=== PATIENT | male | born 1940 | race African-American/Black ===

== ENCOUNTER → 2017-08-28 | Outpatient (CLI) | payer OTHER ==
[~2017-08-28] MED LIST: ACET500T68 PO; ALPR0.5T PO; ASPI325T8 PO; CRESTOR10 MG PO; LORA10TA68 PO; METO50TA2 PO; MULT1TAB52 PO; OMEP20CA9 PO; POLY17PO29 PO; UBID100C26 PO
--- NOTE | 2017-08-28 19:32 | PAIN ---
DATE OF SERVICE: 08/28/2017 CHIEF COMPLAINT: Low back and bilateral lower extremity pain, right greater than left. HISTORY OF PRESENT ILLNESS: This is a 77-year-old male who presents with history of pain for about 12-15 years, worse over the past 1 year, increasing pain in low back into the lower extremities, mostly in the right side with radiation to posterior gluteus, posterior thigh, posterior calf, ankle and foot on the right side and some anterior thigh on the left side, as well as across the low back bilaterally. The patient reports it is worse with standing, walking, changing positions, better with lying down or sitting. The patient reports it is a sharp, stabbing, shooting, throbbing pain with numbness, radiation, tingling, changed during the day, intermittent in intensity, burning, cramping and aching sensation, mostly in the back and legs and mostly on the right side with radiation in the posterior gluteus, thigh and calf in an L5-S1 distribution. The patient reports it does not generally wake him up from sleep at night, does not affect his bowel or bladder control, but does affect his ability to walk significantly. He has a cane which he is walking with and holding in his right hand with him today. The patient has had epidural injections in the past about 10 years ago, trigger point injections, physical therapy, counseling, chiropractic treatment, exercise which he is doing constantly and to this day. The patient also had some acupuncture treatment in the past. He tried Tylenol, aspirin, Aleve and other NSAIDs only with minor decrease in pain. The patient reports no complete resolution of pain, no complete loss of motor function, but significant fatigability in the right lower extremity with walking, standing, changing positions where his right leg wears out much more quicker than the left with activity. PAST MEDICAL HISTORY: Significant for arthritis, irregular heartbeat, hypertension, hearing loss with bilateral hearing aids. PREVIOUS SURGERY: Include inguinal hernia repair x 2 in 1965, lumbar laminectomy in 2004 with interbody fusion. CURRENT MEDICATIONS: Include a daily baby aspirin, Coenzyme Q10, MiraLax, daily vitamins, Claritin, Crestor, metoprolol, Xanax, and omeprazole. ALLERGIES: THE PATIENT IS ALLERGIC TO RELAFEN, MUCINEX AND PLAVIX. FAMILY HISTORY: Significant for heart disease. SOCIAL HISTORY: The patient does not smoke, does not drink alcohol. He is single. Lives on his own and lives locally in [place], [place]. Reports he is currently retired. REVIEW OF SYSTEMS: Positive for those items mentioned in history of present illness. All systems reviewed and otherwise negative. It is complete, full and well documented on the patient's chart. PHYSICAL EXAMINATION: VITAL SIGNS: Today, his patient's blood pressure is 160/88, pulse 78, respirations 16, temperature 97.8 degrees Fahrenheit, height is 5 feet 9 inches, weight is 207 pounds. GENERAL: The patient is awake, alert, oriented, appropriate, very pleasant demeanor. HEENT: Head shows normocephalic, atraumatic. Extraocular movements are intact and symmetrical. The patient is wearing eyeglasses. Oral cavity shows mucous membranes are moist and pink. Dentition is intact. NECK: Shows anterior throat supple without palpable lymphadenopathy noted. Swallow reflex is symmetrical. CHEST: Shows normal on inspection. Breath sounds are clear to auscultation bilaterally. HEART: Shows S1 and S2 clear. ABDOMEN: Soft, nontender, nondistended. No palpable organomegaly. No rebound or guarding demonstrated. BACK: Shows spine grossly in the midline. Normal appearing cervical lordotic curvature, thoracic kyphotic curvature and slight flattening noted in the lumbar lordotic curvature. The lumbar shows a well-healed midline surgical scar. Lumbar paraspinous musculature is symmetrical on inspection and palpation shows some mild tenderness with palpation only in the low lumbar distribution bilaterally without atrophy, hypertrophy without radiation of pain with palpation. No tenderness over the spinous processes, sacrum or sacroiliac regions with palpation. The patient's spine shows good rotational motion both laterally greater than 10 degrees right and left as well as extension greater than 10 degrees, forward flexion 45 degrees without pain reported as well. Lower extremities show deep tendon reflexes at 1+ in the patellar and tendo calcaneus tendons are equal. Motor exam is approximately 4 on a scale of 5, but equal and symmetrical with dorsiflexion, extension, right and left, as well as quadriceps and hamstring flexion, right and left. The patient has a positive straight leg raise on the right at about 40 degrees, which has decreased but not relieved with knee flexion. Left side is negative. Gaenslen's and Jose's maneuvers are negative bilaterally as well. Peripheral pulses are 1+ posterior tibial and dorsalis pedis pulses. No peripheral edema is noted. No clubbing, no cyanosis. Lower extremities are warm and dry to touch, equal in color and appearance. The patient is able to stand with some difficulty, trying to stand on his toes as he does loses balance from putting all his weight on his left leg. The patient is walking with a slight shuffling gait, appears to favor the right lower extremity using a cane in his right hand to ambulate as well. IMPRESSION: 1. This is a 77-year-old male with long history of low back and lower extremity pain now with pain increased in the right lower extremity in L5-S1 distribution in a radicular pattern. 2. MRI scan of lumbar spine showing status post left hemilaminotomy at L3-L4 and L4-L5 with changes in degenerative disk disease throughout the lumbar spine, mild to moderate bilateral neural foraminal stenosis at L2-L3, mild central spinal canal stenosis at L2-L3, L3-L4 and L4-L5 and mild to moderate left greater than right neural foraminal stenosis at L3-L4 with mild bilateral neural foraminal stenosis at L4-L5. 3. Hypertension. 4. Arthritis. PLAN: Options were discussed with the patient including conservative medical management, physical therapies, interventional techniques. As he has done physical therapy already, he is still doing exercises on his own without significant improvement. We discussed interventional techniques and discussed a caudal epidural steroid injection using description as well as anatomical models to describe the procedure. The patient will wait for preauthorization with his insurance provider, but we will have him return for caudal approach epidural steroid injection at that time. In the meantime, the patient was encouraged to increase his activity as tolerated and maintain stretching and strengthening exercises. VIN TEIXEIRA MD DR: MARCUS/ju JOB#: [id number] / [id number] MARY BETH Herr MD
== END | disposition home or self-care (01) ==
LOC: PNCL 08:17
PROVIDERS: ATTEND Anesthesiology
DX: M54.16 Radiculopathy, lumbar region (principal); M79.605 Pain in left leg; M79.604 Pain in right leg; I10 Essential (primary) hypertension; I49.9 Cardiac arrhythmia, unspecified; R53.83 Other fatigue
CPT/HCPCS: G0463